=== PATIENT | female | born 1945 | race Caucasian/White ===

== ENCOUNTER 2024-11-05 12:56 | Emergency (ER) | payer MEDICARE, OTHER ==
[~2024-11-05] VITALS: Ht 172.7 cm; Wt 64.1 kg
[2024-11-05 13:59] LABS: BASO % 0.4 % (0.0-1.0); EOS # 0.2 10^3/uL (0.0-0.5); EOS % 2.1 % (0.0-3.0); HEMATOCRIT 41.3 % (36.0-47.0); HEMOGLOBIN 13.6 g/dl (12.0-15.5); LYMPH # 4.8 10^3/uL (1.5-5.0); LYMPH % 47.7 % (24.0-44.0); MEAN CORPUSCULAR HEMOGLOBIN 31.9 pg (27.0-33.0); MEAN CORPUSCULAR HGB CONC 32.9 g/dl (32.0-36.5); MEAN CORPUSCULAR VOLUME 96.7 fl (80.0-96.0); MONO # 0.5 10^3/uL (0.0-0.8); MONO % 5.3 % (2.0-8.0); NEUTROPHILS # 4.5 10^3/uL (1.5-8.5); NEUTROPHILS % 44.2 % (36.0-66.0); PLATELET COUNT, AUTOMATED 174 10^3/uL (150-450); RED BLOOD COUNT 4.27 10^6/uL (4.00-5.40); WHITE BLOOD COUNT 10.1 10^3/uL (4.0-10.0)
[2024-11-05 14:28] LABS: CREATININE FOR GFR 1.01 MG/DL (0.55-1.30); GLOMERULAR FILTRATION RATE 56.6 (>39); MAGNESIUM LEVEL 1.6 MG/DL (1.8-2.4); POTASSIUM SERUM 3.7 MMOL/L (3.5-5.1)
[2024-11-05 14:30] LABS: FREE T4 1.11 NG/DL (0.89-1.76); THYROID STIMULATING HORMONE 1.887 uIU/ML (0.55-4.78)
[2024-11-05] MEDS ORDERED: BUSP5TAB PO (15:32)
[2024-11-05 16:11] VITALS: BP 118/71; TEMP 96.9; O2SAT 97
[2024-11-05] MEDS: busPIRone 5 MG TAB PO ONE (16:12)
[2024-11-05] MEDS: MAGNESIUM OXIDE 400 MG TAB PO ONE (16:12)
== END 2024-11-05 16:24 | disposition home or self-care (01) ==
LOC: M ED 12:56
DX: F41.9 Anxiety disorder, unspecified (principal); E83.42 Hypomagnesemia; I49.1 Atrial premature depolarization; I10 Essential (primary) hypertension; H81.4 Vertigo of central origin; F17.200 Nicotine dependence, unspecified, uncomplicated; Z88.0 Allergy status to penicillin; Z79.899 Other long term (current) drug therapy

== ENCOUNTER 2024-11-24 09:42 | Emergency (ER) | payer MEDICARE, OTHER ==
[~2024-11-24] VITALS: Ht 175.3 cm; Wt 67.6 kg
[~2024-11-24 09:42] MED LIST: BUSP5TAB PO
[2024-11-24 10:50] LABS: BASO # 0.1 10^3/uL (0.0-0.2); BASO % 0.4 % (0.0-1.0); EOS # 0.1 10^3/uL (0.0-0.5); EOS % 0.3 % (0.0-3.0); LYMPH # 9.1 10^3/uL (1.5-5.0); LYMPH % 51.2 % (24.0-44.0); MONO # 0.8 10^3/uL (0.0-0.8); MONO % 4.2 % (2.0-8.0); NEUTROPHILS # 7.7 10^3/uL (1.5-8.5); NEUTROPHILS % 43.6 % (36.0-66.0); PLATELET COUNT, AUTOMATED 223 10^3/uL (150-450)
[2024-11-24 11:12] LABS: ETHYL ALCOHOL (ETHANOL) < 0.003 % (0.000-0.010)
[2024-11-24 11:14] LABS: ALT/SGPT 24 U/L (7.0-40); AST/SGOT 33 U/L (<34); CALCIUM LEVEL 9.1 MG/DL (8.3-10.6); CARBON DIOXIDE LEVEL 20 MMOL/L (20-31); CHLORIDE LEVEL 106 MMOL/L (98-107); CREATININE FOR GFR 1.55 MG/DL (0.55-1.30); GLOMERULAR FILTRATION RATE 33.9 (>39); MAGNESIUM LEVEL 1.7 MG/DL (1.8-2.4); POTASSIUM SERUM 4.6 MMOL/L (3.5-5.1); SODIUM LEVEL 141 MMOL/L (136-145)
[2024-11-24] MEDS ORDERED: ISOVUE-370 76% 100 ML VIAL As Ordered ONE (11:29)
[2024-11-24] MEDS: NITROGLYCERIN 2% OINT 1 GM *U/D* PKT TOP ONE (11:52)
[2024-11-24 12:21] LABS: INR 1.26
[2024-11-24] MEDS ORDERED: HOME MED LIST COMPLETE! XX SCH (13:00)
[2024-11-24] MEDS ORDERED: K 10100T PO (13:00)
[2024-11-24] MEDS ORDERED: B-12100010 PO (13:00)
[2024-11-24] MEDS ORDERED: OMEGCAP4 PO (13:00)
[2024-11-24] MEDS ORDERED: SERT25TA21 PO (13:00)
[2024-11-24] MEDS ORDERED: LOTR52CA PO (13:00)
[2024-11-24] MEDS ORDERED: BUSP5TA PO (13:00)
[2024-11-24] MEDS: FUROSEMIDE 40 MG/4 ML VIAL IV ONE (13:17)
[2024-11-24] MEDS: MAG SULF 1GM/100ML (MAG RUN) 1 GM in IV 1 EA IV ONE (15:59)
[2024-11-24] MEDS: ADENOSINE 6 MG/2 ML INJECTION IV STA ×2 (17:21→17:24)
[2024-11-24 17:35] VITALS: BP 140/96
[2024-11-24] MEDS: VERAPAMIL 5MG/2ML VIAL IV STA (17:35)
[2024-11-24] MEDS ORDERED: HEPARIN SOD 5000 UNITS/ML 1 ML VIAL/SYRINGE IV PRN (18:15)
[2024-11-24] MEDS: HEPARIN SOD 5000 UNITS/ML 1 ML VIAL/SYRINGE IV ONE (18:26)
[2024-11-24] MEDS: HEPARIN DRIP 25,000 UNITS in IV 1 EA IV SCH (18:26)
[2024-11-24 20:26] VITALS: BP 167/93; O2SAT 97
[2024-11-24 20:33] VITALS: TEMP 97
== END 2024-11-24 20:40 | disposition short-term general hospital (02) ==
LOC: M ED 09:42 → EDBD 09:42 → M ED 20:40
DX: I21.4 Non-ST elevation (NSTEMI) myocardial infarction (principal); I47.10 Supraventricular tachycardia, unspecified; I47.20 Ventricular tachycardia, unspecified; I10 Essential (primary) hypertension; F41.9 Anxiety disorder, unspecified; I45.81 Long QT syndrome; F17.200 Nicotine dependence, unspecified, uncomplicated; F10.10 Alcohol abuse, uncomplicated; Z88.0 Allergy status to penicillin; Z79.899 Other long term (current) drug therapy
CPT/HCPCS: 71275; 80048; 80076; 82077; 83735; 84145; 84443; 84484; 85025; 85610; 85730; 87486; 87581; 87633; 87798; 93005; 93041; 96365; 96375; 99285; J0153; J1938; J3475; Q9967

== ENCOUNTER 2024-12-09 20:03 | Emergency (ER) | payer MEDICARE, OTHER ==
[~2024-12-09] VITALS: Ht 172.7 cm; Wt 64.7 kg
[~2024-12-09 20:03] MED LIST changes: +B-12100010 PO; +BUSP5TA PO; +K 10100T PO; +LOTR52CA PO; +OMEGCAP4 PO; +SERT25TA21 PO
[2024-12-09 20:30] LABS: PLATELET COUNT, AUTOMATED 168 10^3/uL (150-450)
[2024-12-09 20:52] LABS: CK-MB VALUE MASS 2.6 NG/ML (<3.6)
[2024-12-09 21:09] LABS: ALT/SGPT 33.0 U/L (7.0-40); AST/SGOT 45.0 U/L (<34); CALCIUM LEVEL 9.1 MG/DL (8.3-10.6); CARBON DIOXIDE LEVEL 25.0 MMOL/L (20-31); CHLORIDE LEVEL 105.0 MMOL/L (98-107); CREATININE FOR GFR 1.16 MG/DL (0.55-1.30); GLOMERULAR FILTRATION RATE 48.0 (>39); POTASSIUM SERUM 3.9 MMOL/L (3.5-5.1); SODIUM LEVEL 143.0 MMOL/L (136-145)
[2024-12-09 21:11] LABS: CPK CREATINE PHOSPHOKINASE 49.0 U/L (34-145); MB/CK RELATIVE INDEX 5.3 (< OR =4)
[2024-12-09 21:12] LABS: ATYPICAL LYMPH 2 % (0-5); BASOPHILS 2 % (0-1); EOSINOPHILS 1 % (0-3); LYMPHOCYTES 39 % (16-44); MONOCYTES 3 % (0-5); NEUTROPHILS 53 % (28-66); PLATELET ESTIMATE NORMAL (NORMAL)
[2024-12-09 22:45] LABS: CK-MB VALUE MASS 2.2 NG/ML (<3.6)
[2024-12-09 22:46] LABS: CPK CREATINE PHOSPHOKINASE 41.0 U/L (34-145); MB/CK RELATIVE INDEX 5.36 (< OR =4)
[2024-12-10] MEDS ORDERED: ISOVUE-370 76% 100 ML VIAL As Ordered ONE (00:11)
[2024-12-10] MEDS ORDERED: FURO20TA2 PO (02:15)
[2024-12-10] MEDS: FUROSEMIDE 40 MG/4 ML VIAL IV ONE (02:58)
[2024-12-10 03:15] VITALS: BP 158/70; TEMP 98.5; O2SAT 97
== END 2024-12-10 03:35 | disposition home or self-care (01) ==
LOC: M ED 20:03
DX: I50.9 Heart failure, unspecified (principal); J91.8 Pleural effusion in other conditions classified elsewhere; I49.1 Atrial premature depolarization; I45.81 Long QT syndrome; I10 Essential (primary) hypertension; F17.200 Nicotine dependence, unspecified, uncomplicated; Z86.79 Personal history of other diseases of the circulatory system; Z88.0 Allergy status to penicillin; Z79.899 Other long term (current) drug therapy
CPT/HCPCS: 71045; 71275; 80047; 80048; 80076; 82550; 82553; 83880; 84484; 85025; 87486; 87581; 87633; 87798; 93005; 93041; 94760; 96374; 99285; J1938; Q9967

== ENCOUNTER → 2024-12-13 | Outpatient (REF) | payer MEDICARE, OTHER ==
[~2024-12-13] MED LIST changes: +FURO20TA2 PO
[2024-12-13 16:48] LABS: PLATELET COUNT, AUTOMATED 200 10^3/uL (150-450)
[2024-12-13 17:06] LABS: CALCIUM LEVEL 8.8 MG/DL (8.3-10.6); CARBON DIOXIDE LEVEL 33.0 MMOL/L (20-31); CHLORIDE LEVEL 102.0 MMOL/L (98-107); CHOLESTEROL LEVEL 112.0 MG/DL (<200); CHOLESTEROL RISK RATIO 2.65 (<5); CREATININE FOR GFR 1.03 MG/DL (0.55-1.30); GLOMERULAR FILTRATION RATE 55.3 (>39); LDL CHOLESTEROL 51.8 MG/DL (<100); NON-HDL-C 69.8 MG/DL; POTASSIUM SERUM 3.6 MMOL/L (3.5-5.1); SODIUM LEVEL 146.0 MMOL/L (136-145); TRIGLYCERIDES LEVEL 90.0 MG/DL (<150)
[2024-12-13 18:10] LABS: BASOPHILS 1 % (0-1); EOSINOPHILS 2 % (0-3); LYMPHOCYTES 47 % (16-44); MONOCYTES 1 % (0-5); NEUTROPHILS 49 % (28-66)
[2024-12-13 18:11] LABS: PLATELET ESTIMATE NORMAL (NORMAL)
[2024-12-15 10:42] LABS: NT PRO BNP SO 29666 pg/mL (<450)
== END ==
LOC: M LAB REF 16:22
PROVIDERS: ATTEND Nurse Practitioner Family
DX: I50.9 Heart failure, unspecified (principal); D72.829 Elevated white blood cell count, unspecified; A69.20 Lyme disease, unspecified; R53.83 Other fatigue; E78.5 Hyperlipidemia, unspecified

== ENCOUNTER 2024-12-24 10:54 | Emergency (ER) | payer MEDICARE, OTHER ==
[~2024-12-24] VITALS: Ht 172.7 cm; Wt 68.3 kg
[2024-12-24] MEDS ORDERED: ADENOSINE 6 MG/2 ML INJECTION As Ordered ONE (11:06)
[2024-12-24] MEDS: NS 500 ML IV ONE (11:28)
[2024-12-24 11:37] LABS: BASO # 0.1 10^3/uL (0.0-0.2); BASO % 0.4 % (0.0-1.0); EOS # 0.1 10^3/uL (0.0-0.5); EOS % 0.9 % (0.0-3.0); LYMPH # 4.9 10^3/uL (1.5-5.0); LYMPH % 40.3 % (24.0-44.0); MONO # 0.5 10^3/uL (0.0-0.8); MONO % 4.2 % (2.0-8.0); NEUTROPHILS # 6.5 10^3/uL (1.5-8.5); NEUTROPHILS % 53.9 % (36.0-66.0); PLATELET COUNT, AUTOMATED 189 10^3/uL (150-450)
[2024-12-24 11:49] LABS: INR 1.02
[2024-12-24] MEDS ORDERED: METO1TAB7 PO (11:59)
[2024-12-24] MEDS: ADENOSINE 6 MG/2 ML INJECTION IV STA ×2 (11:59→12:00)
[2024-12-24] MEDS ORDERED: FURO20TA2 PO (12:01)
[2024-12-24] MEDS ORDERED: ASPI-226 PO (12:02)
[2024-12-24] MEDS ORDERED: ATOR40TA75 PO (12:03)
[2024-12-24] MEDS ORDERED: HOME MED LIST COMPLETE! XX SCH (12:05)
[2024-12-24 12:06] VITALS: BP 162/111
[2024-12-24] MEDS: dilTIAZem 25 MG/5 ML VIAL IV STA (12:06)
[2024-12-24] MEDS: MAG SULF 1GM/100ML (MAG RUN) 1 GM in IV 1 EA IV ONE (12:07)
[2024-12-24 12:10] LABS: ALT/SGPT 28.0 U/L (7.0-40); AST/SGOT 47.0 U/L (<34); CALCIUM LEVEL 8.2 MG/DL (8.3-10.6); CARBON DIOXIDE LEVEL 28.0 MMOL/L (20-31); CHLORIDE LEVEL 100.0 MMOL/L (98-107); CK-MB VALUE MASS 1.2 NG/ML (<3.6); CREATININE FOR GFR 1.09 MG/DL (0.55-1.30); GLOMERULAR FILTRATION RATE 51.7 (>39); MAGNESIUM LEVEL 1.4 MG/DL (1.8-2.4); POTASSIUM SERUM 3.0 MMOL/L (3.5-5.1); SODIUM LEVEL 143.0 MMOL/L (136-145)
[2024-12-24 12:12] LABS: CPK CREATINE PHOSPHOKINASE 38.0 U/L (34-145); FREE T4 1.14 NG/DL (0.89-1.76); MB/CK RELATIVE INDEX 3.15 (< OR =4)
[2024-12-24] MEDS: POTASSIUM CHLORIDE 10MEQ SR TABLET PO ONE (12:26)
[2024-12-24] MEDS: KCL 10MEQ/100ML SWI (KRUN) 10 MEQ in IV 1 EA IV ONE (12:35)
[2024-12-24 13:13] LABS: CK-MB VALUE MASS 1.1 NG/ML (<3.6)
[2024-12-24 13:23] LABS: CPK CREATINE PHOSPHOKINASE 35.0 U/L (34-145); MB/CK RELATIVE INDEX 3.14 (< OR =4)
[2024-12-24 15:07] VITALS: BP 177/85; TEMP 97.3; O2SAT 96
== END 2024-12-24 15:12 | disposition short-term general hospital (02) ==
LOC: M ED 10:54
DX: I47.10 Supraventricular tachycardia, unspecified (principal); I49.3 Ventricular premature depolarization; I45.81 Long QT syndrome; I10 Essential (primary) hypertension; E11.9 Type 2 diabetes mellitus without complications; F41.9 Anxiety disorder, unspecified; F32.A Depression, unspecified; Z79.82 Long term (current) use of aspirin; Z79.02 Long term (current) use of antithrombotics/antiplatelets; Z79.899 Other long term (current) drug therapy; Z88.0 Allergy status to penicillin; Z87.891 Personal history of nicotine dependence
CPT/HCPCS: 71045; 80047; 80048; 80076; 82550; 82553; 83690; 83735; 83880; 84439; 84443; 84484; 85025; 85610; 85730; 93005; 93041; 94760; 96365; 96366; 96367; 96375; 96376; 99291; J0153; J1163; J3475

== ENCOUNTER → 2025-01-13 | Outpatient (REF) | payer MEDICARE, OTHER ==
[~2025-01-13] MED LIST changes: +ASPI-226 PO; +ATOR40TA75 PO; +METO1TAB7 PO
[2025-01-14 13:08] LABS: PLATELET COUNT, AUTOMATED 267 10^3/uL (150-450)
[2025-01-14 13:11] LABS: CALCIUM LEVEL 9.5 MG/DL (8.3-10.6); CARBON DIOXIDE LEVEL 32.0 MMOL/L (20-31); CHLORIDE LEVEL 100.0 MMOL/L (98-107); CREATININE FOR GFR 1.27 MG/DL (0.55-1.30); GLOMERULAR FILTRATION RATE 43.0 (>39); MAGNESIUM LEVEL 2.0 MG/DL (1.8-2.4); POTASSIUM SERUM 4.7 MMOL/L (3.5-5.1); SODIUM LEVEL 143.0 MMOL/L (136-145)
[2025-01-14 13:45] LABS: ATYPICAL LYMPH 6 % (0-5); BASOPHILS 2 % (0-1); EOSINOPHILS 5 % (0-3); LYMPHOCYTES 42 % (16-44); MONOCYTES 7 % (0-5); NEUTROPHILS 37 % (28-66); PLATELET ESTIMATE NORMAL (NORMAL)
== END ==
LOC: M LAB REF 12:26
PROVIDERS: ATTEND Nurse Practitioner Family
DX: R79.83 Abnormal findings of blood amino-acid level (principal); I50.9 Heart failure, unspecified; D72.829 Elevated white blood cell count, unspecified; R79.0 Abnormal level of blood mineral